=== PATIENT | male | born 1995 | race Caucasian/White ===

== ENCOUNTER → 2019-10-25 08:59 | Outpatient (CLI) | payer OTHER, MEDICAID, SELFPAY ==
--- NOTE | 2019-10-25 | DI.RAD.S_ITS ---
PROCEDURE: RETROGRADE URETHROGRAM INDICATIONS: Difficulty urinating. COMPARISON: [facility], CT, IVP (ABD & PEL WWO CONTRAST), 02/03/2017, 7:42. 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 No suspicious abdominal calcifications. Bony structures are unremarkable. A Giraldo catheter was inserted into the proximal penile urethra. Contrast was injected through the Giraldo catheter while the patient was examined under fluoroscopy. There is a high-grade, short segment stricture (~1 cm in length) in the proximal penile urethra/distal bulbar urethra. Becaused of this high-grade stricture, the posterior urethra was not visualized (unable to achieve adequate filling pressure to fill the posterior urethra retrograde). 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 Dictated by: Frank Arthur M.D. on 10/25/2019 at 19:01 Approved by: Frank Arthur M.D. on 10/25/2019 at 19:11
== END ==
PROVIDERS: Visit Provider Urology
DX: R39.198 Other difficulties with micturition (principal); N35.914 Unspecified anterior urethral stricture, male; N35.912 Unspecified bulbous urethral stricture, male; Z87.448 Personal history of other diseases of urinary system
CPT/HCPCS: 74430

== ENCOUNTER → 2019-12-19 18:58 | Outpatient (ROUT) | payer OTHER, MEDICAID, SELFPAY ==
[2019-12-19 19:29] LABS: BUN Creatinine Ratio 18.8 (6-22); Blood Urea Nitrogen 15 mg/dL (9-20); Calcium 9.9 mg/dL (8.4-10.2); Carbon Dioxide 28 mmol/L (22-32); Chloride 100 mmol/L (98-107); Estimated Glomerular Filt Rate > 60.0 mL/min (>60); Glucose 95 mg/dL (70-100); HEMOLYSIS < 15 (0-50); Potassium 4.5 mmol/L (3.4-5.1); Sodium 140 mmol/L (137-145)
== END ==
PROVIDERS: Visit Provider Internal Medicine
DX: I10 Essential (primary) hypertension (principal)
CPT/HCPCS: 80048

== ENCOUNTER → 2021-09-18 16:03 | Outpatient (CLI) | payer OTHER, SELFPAY ==
--- NOTE | 2021-09-18 | DI.RAD.S_ITS ---
PROCEDURE: XR LUMBAR SPINE 2-3V INDICATIONS: LBP w/o sciatica, unspecified back pain TECHNIQUE: 3 views of the lumbar spine were acquired. COMPARISON: None. FINDINGS: Bones: 5 [id number] vertebrae are present. There is normal bony alignment. No vertebral body compression fractures. No suspicious bony lesions. Soft tissues: Overlying bowel gas pattern is normal. No suspicious soft tissue calcifications. IMPRESSION: No acute fracture. No osseous lesion. If symptoms and/or clinical suspicion for pathology persist, further assessment with repeat, or advanced imaging (e.g., CT, MRI, or bone scan) may be helpful for further assessment. Dictated by: Crys Abel M.D. on 09/18/2021 at 16:46 Approved by: Crys Abel M.D. on 09/18/2021 at 16:47
== END ==
PROVIDERS: Referring Provider Internal Medicine; Visit Provider Internal Medicine
DX: M54.50 Low back pain, unspecified (principal)
CPT/HCPCS: 72100